=== PATIENT | male | born 1975 ===

== ENCOUNTER 2021-06-02 16:57 | Emergency (ER) | payer BC ==
[~2021-06-02] VITALS: Ht 175.3 cm; Wt 88.9 kg
[2021-06-02] MEDS ORDERED: DESV100T PO (17:10)
[2021-06-02] MEDS ORDERED: ATOM80CA PO (17:10)
[2021-06-02] MEDS ORDERED: BUPR-96 PO (17:10)
[2021-06-02] MEDS ORDERED: TRAZ-257 PO (17:10)
[2021-06-02] MEDS ORDERED: DULO30CA2 PO (17:10)
[2021-06-02] MEDS ORDERED: FINA5TAB11 PO (17:10)
[2021-06-02] MEDS ORDERED: GABA600T12 PO (17:10)
--- NOTE | 2021-06-02 17:15 | NUR ---
Dr. Whitney at bedside for MSE.
[2021-06-02] MEDS ORDERED: MORPHINE SULFATE 4 MG/1 ML DISP.SYRIN IV ONE ×2 (17:30→18:00)
[2021-06-02] MEDS ORDERED: MORPHINE SULFATE 4 MG/1 ML DISP.SYRIN ONE ×2 (17:43→18:05)
[2021-06-02 17:49] LABS: HEMATOCRIT 43.6 % (36.7-47.1); MEAN CORPUSCULAR VOLUME 81.1 fL (73.0-96.2); PLATELET COUNT (AUTO) 186 K/uL (152-348)
[2021-06-02 17:53] LABS: CREATININE 1.1 mg/dL (0.6-1.3); POTASSIUM 3.8 mmol/L (3.5-5.1)
[2021-06-02] MEDS ORDERED: IOHEXOL 300MG/ML 100 ML INFUS..BTL ONE (17:53)
[2021-06-02] MEDS ORDERED: IV NORMAL SALINE 250 ML IV ONE (17:53)
[2021-06-02] MEDS ORDERED: SWABABLE VALVE TRANSFER SET EA MC ONE (17:53)
[2021-06-02 17:59] LABS: BILIRUBIN,TOTAL 0.4 mg/dL (0.2-1.0)
--- NOTE | 2021-06-02 18:00 | NUR ---
Pt out of Er for CT.
--- NOTE | 2021-06-02 18:20 | NUR ---
Pt back to ER from CT.
[2021-06-02] MEDS ORDERED: IV NORMAL SALINE 1000 ML BAG IV ONE (18:30)
[2021-06-02] MEDS ORDERED: HYDROMORPHONE 1 MG/1 ML DISP.SYRIN IV ONE ×2 (18:30→19:15)
[2021-06-02] MEDS ORDERED: HYDROMORPHONE 1 MG/1 ML DISP.SYRIN ONE ×2 (18:40→19:16)
[2021-06-02] MEDS ORDERED: MINERAL OIL FLEET ENEMA 133 ML BOTTLE RC ONE ×2 (18:45→18:53)
[2021-06-02] MEDS ORDERED: MAGNESIUM HYDROXIDE 30 ML LIQUID UDC PO ONE (18:45)
[2021-06-02] MEDS ORDERED: MAGNESIUM CITRATE 296 ML BOTTLE PO ONE (18:45)
[2021-06-02] MEDS ORDERED: MAG HYDROX/AL HYDROX/SIMETH 30 ML LIQUID UDC ONE (18:52)
[2021-06-02] MEDS ORDERED: MAGNESIUM CITRATE 296 ML BOTTLE ONE (18:53)
--- NOTE | 2021-06-02 21:10 | NUR ---
Patient discharged to home in stable condition. Written and verbal after care instructions given. Patient verbalizes understanding of instructions. Stressed follow up or return to ER for worsening s/s. pt ambulate without assist. denies c/o pain or sob. pt was able to have a bm prior to d/c
[2021-06-02 21:13] VITALS: BP 150/80
== END 2021-06-02 21:14 | disposition home or self-care (01) ==
LOC: ER 16:57
DX: R10.9 Unspecified abdominal pain (principal); K59.00 Constipation, unspecified; Z20.822 Contact with and (suspected) exposure to COVID-19; R94.31 Abnormal electrocardiogram [ECG] [EKG]; F32.A Depression, unspecified; Z79.899 Other long term (current) drug therapy
CPT/HCPCS: 36415; 74177; 80053; 83690; 85025; 87426; 93005; 96361; 96374; 96375; 96376; 99285; J1170 ×2; J2270 ×2; Q9967; A4663; J7030; J7050